=== PATIENT | female | born 1955 | race Two or more races ===

== ENCOUNTER 2020-07-31 10:00 | Emergency (ER) | payer OTHER ==
[2020-07-31] MEDS ORDERED: ERYTHROMYCIN O3.5 GM OU (10:53)
== END 2020-07-31 11:36 | disposition home or self-care (01) ==
LOC: ER1 10:00
DX: S05.02XA Injury of conjunctiva and corneal abrasion without foreign body, left eye, initial encounter (principal); F17.210 Nicotine dependence, cigarettes, uncomplicated; E11.9 Type 2 diabetes mellitus without complications; Z79.84 Long term (current) use of oral hypoglycemic drugs; Z23 Encounter for immunization; W45.8XXA Other foreign body or object entering through skin, initial encounter
CPT/HCPCS: 90471; 90715; 99283

== ENCOUNTER 2021-05-03 11:58 | Emergency (ER) | payer OTHER ==
[~2021-05-03 11:58] MED LIST: ERYTHROMYCIN O3.5 GM OU
== END 2021-05-03 15:48 | disposition home or self-care (01) ==
LOC: ER1 11:58
DX: S06.9X9A Unspecified intracranial injury with loss of consciousness of unspecified duration, initial encounter (principal); S16.1XXA Strain of muscle, fascia and tendon at neck level, initial encounter; S40.012A Contusion of left shoulder, initial encounter; S40.011A Contusion of right shoulder, initial encounter; S20.213A Contusion of bilateral front wall of thorax, initial encounter; M50.31 Other cervical disc degeneration, high cervical region; E11.9 Type 2 diabetes mellitus without complications; W00.9XXA Unspecified fall due to ice and snow, initial encounter; Y92.009 Unspecified place in unspecified non-institutional (private) residence as the place of occurrence of the external cause
CPT/HCPCS: 70450; 71046; 72125; 73030; 99284